=== PATIENT | male | born 1955 | race African-American/Black ===

== ENCOUNTER → 2020-09-15 | Outpatient (CLI) | payer BC, OTHER ==
[~2020-09-15] MED LIST: AFRIN15 M1
== END ==
LOC: KOH-I 13:29
DX: N18.30 Chronic kidney disease, stage 3 unspecified (principal); N28.1 Cyst of kidney, acquired
CPT/HCPCS: 76775

== ENCOUNTER 2020-11-03 20:02 | Emergency (ER) | payer BC, OTHER ==
[2020-11-03 20:39] LABS: HEMOGLOBIN 14.8 gm/dl (14.0-17.5); RED BLOOD COUNT 4.74 M/UL (4.20-5.50); WHITE BLOOD COUNT 5.7 K/UL (4.5-11.0)
[2020-11-03 21:08] LABS: BUN/CREATININE RATIO 13 (0-10)
== END 2020-11-04 00:47 | disposition home or self-care (01) ==
LOC: ER1 20:02
PROVIDERS: Family Medicine
DX: R04.0 Epistaxis (principal); I10 Essential (primary) hypertension; E11.65 Type 2 diabetes mellitus with hyperglycemia; E87.6 Hypokalemia; Z79.899 Other long term (current) drug therapy
CPT/HCPCS: 30901; 80053; 82550; 82553; 83874; 84484; 85025; 85610; 93005; 99283

== ENCOUNTER 2020-11-21 14:00 | Emergency (ER) | payer BC, OTHER ==
[2020-11-21 15:42] LABS: HEMOGLOBIN 13.3 gm/dl (14.0-17.5); RED BLOOD COUNT 4.35 M/UL (4.20-5.50); WHITE BLOOD COUNT 6.6 K/UL (4.5-11.0)
[2020-11-21] MEDS ORDERED: AFRIN15 M1 (17:13)
== END 2020-11-21 15:45 | disposition home or self-care (01) ==
LOC: ER1 14:00
PROVIDERS: Physician Assistant
DX: R04.0 Epistaxis (principal); E11.9 Type 2 diabetes mellitus without complications; I10 Essential (primary) hypertension; Z79.899 Other long term (current) drug therapy
CPT/HCPCS: 85025; 85610; 99283

== ENCOUNTER → 2021-12-04 | Outpatient (CLI) | payer BC, MEDICARE | LOC: KOH-I 11:42 | DX: R22.42 Localized swelling, mass and lump, left lower limb (principal); M54.50 Low back pain, unspecified; M25.561 Pain in right knee; M25.562 Pain in left knee; M19.072 Primary osteoarthritis, left ankle and foot; M47.816 Spondylosis without myelopathy or radiculopathy, lumbar region; M17.0 Bilateral primary osteoarthritis of knee | CPT/HCPCS: 72100; 73562; 73630 ==

== ENCOUNTER → 2022-01-28 | Outpatient (CLI) | payer BC | LOC: MRI 13:07 | DX: M48.061 Spinal stenosis, lumbar region without neurogenic claudication (principal); M48.56XA Collapsed vertebra, not elsewhere classified, lumbar region, initial encounter for fracture; M51.36 Other intervertebral disc degeneration, lumbar region | CPT/HCPCS: 72148 ==